=== PATIENT | male | born 1985 | race African-American/Black ===

== ENCOUNTER 2018-06-01 23:24 | Emergency (ER) | payer MEDICARE, MEDICAID ==
--- NOTE | 2018-06-02 00:59 | ER Document Report ---
ED General - General Chief Complaint: Abdominal Pain Stated Complaint: ABDOMINAL PAIN Time Seen by Provider: 06/02/18 00:50 Notes: Patient is a pleasant 32-year-old male who presents with complaint of abdominal pain is been ongoing for 1 week. Abdominal pain is across both sides of the abdomen and periods along the mid abdomen. No fevers. No vomiting. No diarrhea. Last bowel movement was today and was normal. No blood in the stool. He does admit that he drinks alcohol every day. He drinks just under 1/5 of liquor every day. He does smoke cigarettes. He does some marijuana. No other drugs. He does not take any medications. He is never had any surgeries on his abdomen. He denies anything making the pain worse or better. No other complaints at this time. No blood in his stool. TRAVEL OUTSIDE OF THE [place] IN LAST 30 DAYS: No - Related Data Allergies/Adverse Reactions: No Known Allergies Allergy (Verified 07/17/13 12:56) Past Medical History - Social History Smoking Status: Current Every Day Smoker Frequency of alcohol use: Heavy Drug Abuse: Marijuana Family History: Reviewed & Not Pertinent - Immunizations Hx Diphtheria, Pertussis, Tetanus Vaccination: Yes - unk date Review of Systems - Review of Systems Notes: My Normal Review Basic REVIEW OF SYSTEMS: CONSTITUTIONAL : Denies fever, chills, or sweats. Denies recent illness. EENT: Denies eye, ear, throat, or mouth pain or symptoms. Denies nasal or sinus congestion. CARDIOVASCULAR: Denies chest pain. RESPIRATORY: Denies cough, cold, or chest congestion. Denies shortness of breath, difficulty breathing, or wheezing. GASTROINTESTINAL: Abdominal pain. No nausea or vomiting. No diarrhea. GENITOURINARY: Denies difficulty urinating, painful urination, burning, frequency, or blood in urine. MUSCULOSKELETAL: Denies neck or back pain or joint pain or swelling. SKIN: Denies rash or skin lesions. NEUROLOGICAL: Denies altered mental status or loss of consciousness. Denies headache. Denies weakness or paralysis or loss of use of either side. Denies problems with gait or speech. Denies sensory or motor loss. ALL OTHER SYSTEMS REVIEWED AND NEGATIVE. Physical Exam - Vital signs Vitals: Temp Pulse Resp BP Pulse Ox 98.7 F 78 14 167/90 H 99 06/01/18 23:35 06/01/18 23:35 06/01/18 23:35 06/01/18 23:35 06/01/18 23:35 - Notes Notes: General Appearance: Well nourished, alert, cooperative, no acute distress, mild obvious discomfort. Vitals: reviewed, See vital signs table. Eyes: PERRL, EOMI, Conjuctiva clear Mouth: No decreasd moisture Throat: No tonsillar inflammation, No airway obstruction, No lymphadenopathy Neck: Supple, no neck tenderness, No thyromegaly Lungs: No wheezing, No rales, No rhonci, No accessory muscle use, good air exchange bilaterally. Heart: Normal rate, Regular rythm, No murmur, no rub Abdomen: Normal BS, soft, some very mild pain to palpation of the right lower quadrant abdomen. Remainder of abdomen is nontender. No rigidity. No rebounding. No guarding. Extremities: strength 5/5 in all extremities, good pulses in all extremities, no swelling or tenderness in the extremities, no edema. Skin: warm, dry, appropriate color, no rash Neuro: speech clear, oriented x 3, normal affect, responds appropriately to questions. Course - Re-evaluation Re-evalutation: 06/02/18 02:26 Patient's blood work is unremarkable. His x-ray does shows evidence of a large stool burden which is consistent with his current physical exam and presentation. He does not have a lot of abdominal pain on exam. He has just vague pain across the entire middle portion of his abdomen. He has some right lower quadrant pain however I do not suspect appendicitis as his pain is been ongoing a week, he has no fevers, no leukocytosis, and he looks very well. At this time we will place him on MiraLAX. I talked at length about alcohol use and how this can affect his ability to have good bowel movements and also how can cause gastritis and problems with the stomach. I encouraged him to continue to gradually cut back over the course of a week until he is no longer drinking. Patient agrees with this and says he will try. I encouraged him return to ER immediately if he has fevers, vomiting, worsening pain, or if he feels unwell. Patient agrees with plan and will be discharged home. Dictation of this chart was performed using voice recognition software; therefore, there may be some unintended grammatical errors. - Vital Signs Vital signs: Temp Pulse Resp BP Pulse Ox 98.7 F 78 14 167/90 H 99 06/01/18 23:35 06/01/18 23:35 06/01/18 23:35 06/01/18 23:35 06/01/18 23:35 - Laboratory Result Diagrams: 06/02/18 01:00 06/02/18 01:00 Discharge - Discharge Clinical Impression: Abdominal pain Qualifiers: Abdominal location: generalized Qualified Code(s): R10.84 - Generalized abdo heather pain Condition: Good Disposition: HOME, SELF-CARE Additional Instructions: Please gradually cut back on your alcohol intake until you are no longer drinking alcohol. Please try to quit smoking. Continued alcohol and tobacco use will eventually lead to . our xray did show some constipation. This could be causing your pain. please take the prescribed Miralax. Take the Miralax until you are having liquid stools and than stop. Please drink at least 5 glasses of water a day to stay well hydrated. Return to the ER immediately if you develop fevers, worsening pain, blood in your stool, vomiting, or feel that you are worsening in any way. Prescriptions: Famotidine [Pepcid 40 mg Tablet] 40 mg PO DAILY #20 tablet Polyethylene Glycol 3350 [Miralax] 1 cap PO DAILY #527 powder Referrals: VAMSI ESTRADA MD [Primary Care Provider] - Follow up in 3-5 days
[2018-06-02 01:10] LABS: ABSOLUTE BASOPHILS # (AUTO) 0.1 10^3/uL (0.0-0.2); ABSOLUTE EOSINOPHILS # (AUTO) 0.1 10^3/uL (0.0-0.6); ABSOLUTE LYMPHOCYTES (AUTO) 3.3 10^3/uL (0.5-4.7); ABSOLUTE MONOCYTES (AUTO) 0.8 10^3/uL (0.1-1.4); ABSOLUTE NEUT (AUTO) 3.8 10^3/uL (1.7-8.2); EOSINOPHILS % (AUTO) 1.3 % (0-6); HEMATOCRIT 48.1 % (37.9-51.0); HEMOGLOBIN 16.5 g/dL (13.5-17.0); LYMPHOCYTES % (AUTO) 40.8 % (13-45); MEAN CORPUSCULAR HEMOGLOBIN 32.6 pg (27.0-33.4); MEAN CORPUSCULAR HGB CONC 34.3 g/dL (32.0-36.0); MEAN CORPUSCULAR VOLUME 95 fl (80-97); MONOCYTES % (AUTO) 9.9 % (3-13); PLATELET COUNT 270 10^3/uL (150-450); RED BLOOD COUNT 5.05 10^6/uL (4.35-5.55); RED CELL DISTRIBUTION WIDTH 13.2 % (11.5-14.0); TOTAL CELLS COUNTED % (AUTO) 100 %; WHITE BLOOD COUNT 8.2 10^3/uL (4.0-10.5)
[2018-06-02 01:26] LABS: ALANINE AMINOTRANSFERASE 42 U/L (21-72); ALBUMIN 4.4 g/dL (3.5-5.0); ALKALINE PHOSPHATASE 72 U/L (38-126); ANION GAP 7 (5-19); ASPARTATE AMINO TRANSFERASE 26 U/L (17-59); BILIRUBIN,DIRECT 0.2 mg/dL (0.0-0.4); BILIRUBIN,TOTAL 0.7 mg/dL (0.2-1.3); BLOOD UREA NITROGEN 10 mg/dL (7-20); CALCIUM 9.7 mg/dL (8.4-10.2); CARBON DIOXIDE 29 mmol/L (22-30); CHLORIDE 106 mmol/L (98-107); GLUCOSE 92 mg/dL (75-110); LIPASE 50.8 U/L (23-300); SODIUM 142.3 mmol/L (137-145); TOTAL PROTEIN 7.4 g/dL (6.3-8.2)
--- NOTE | 2018-06-02 02:04 | RADIOLOGY REPORT (SQ) ---
EXAM DESCRIPTION: XR ABDOMEN 2 VIEWS SUPINE ERECT COMPLETED DATE/TME: 06/02/2018 00:56 CLINICAL HISTORY: 32 years, Male, abdominal pain COMPARISON: 05/05/2011 abdominal series NUMBER OF VIEWS: 3 TECHNIQUE: Supine and erect views of the abdomen LIMITATIONS: None. FINDINGS: Nonspecific, nonobstructive bowel gas pattern. Abundant stool in the colon. No free air IMPRESSION: Abundant stool in the colon copyright 2010 [employer]- All Rights Reserved
[2018-06-02 02:49] VITALS: BP 154/88
== END 2018-06-02 02:49 | disposition home or self-care (01) ==
LOC: ER 23:24
DX: R10.84 Generalized abdominal pain (principal); F17.210 Nicotine dependence, cigarettes, uncomplicated
CPT/HCPCS: 36415; 74019; 80053; 83690; 85025; 99284

== ENCOUNTER 2018-12-25 17:02 | Emergency (ER) | payer MEDICARE, MEDICAID ==
--- NOTE | 2018-12-25 17:46 | ER Document Report ---
ED Medical Screen (RME) - General Chief Complaint: Rib Pain Stated Complaint: RIB PAIN Time Seen by Provider: 12/25/18 17:35 Primary Care Provider: VAMSI ESTRADA MD [Primary Care Provider] - Follow up as needed Mode of Arrival: Ambulatory Information source: Patient Notes: Patient presents with right-sided pain is Sunday. Patient tender to palpate in the right rib area right upper quad right flank pain. Denies trauma. Patient shovels asphalt for living. Reports he is eating drink without problems. Reports he does feel little short of breath. No complaints of fever vomiting or diarrhea. Respiratory rate even unlabored. She has a very large abdomen is tender to palpate right rib and right upper quad right flank. I have greeted and performed a rapid initial assessment of this patient. A comprehensive ED assessment and evaluation of the patient, analysis of test results and completion of the medical decision making process will be conducted by additional ED providers. Dictation of this chart was performed using voice recognition software; therefore, there may be some unintended grammatical errors. TRAVEL OUTSIDE OF THE [place] IN LAST 30 DAYS: No - Related Data Allergies/Adverse Reactions: No Known Allergies Allergy (Verified 12/25/18 17:37) Past Medical History Renal/ Medical History: Denies: Hx Peritoneal Dialysis - Immunizations Hx Diphtheria, Pertussis, Tetanus Vaccination: Yes - unk date Physical Exam - Vital signs Vitals: Temp Pulse Resp BP Pulse Ox 98.6 F 94 18 134/70 H 100 12/25/18 17:24 12/25/18 17:24 12/25/18 17:24 12/25/18 17:24 12/25/18 17:24 Course - Vital Signs Vital signs: Temp Pulse Resp BP Pulse Ox 98.6 F 94 18 134/70 H 100 12/25/18 17:24 12/25/18 17:24 12/25/18 17:24 12/25/18 17:24 12/25/18 17:24 Doctor's Discharge - Discharge Referrals: VAMSI ESTRADA MD [Primary Care Provider] - Follow up as needed
--- NOTE | 2018-12-25 18:20 | RADIOLOGY REPORT (SQ) ---
EXAM DESCRIPTION: RIBS RIGHT W/PA CHEST COMPLETED DATE/TIME: 12/25/2018 5:57 pm REASON FOR STUDY: rib pain COMPARISON: None. TECHNIQUE: Frontal view of the chest and additional views of the right ribs acquired. NUMBER OF VIEWS: Three view. LIMITATIONS: None. FINDINGS: FRONTAL CXR: No pneumothorax. No pleural effusion. No atelectasis or infiltrates. RIBS: No displaced rib fractures. No lytic or blastic bony lesions. OTHER: No other significant finding. IMPRESSION: NO PNEUMOTHORAX. NO DISPLACED RIB FRACTURES. COMMENT: SITE OF TRAUMA/COMPLAINT MARKED/STAMP COMPLETED: NO. TECHNICAL DOCUMENTATION: JOB ID: [id number] [employer]- All Rights Reserved Reading location - IP/workstation name: [email or web address]
[2018-12-25 18:42] LABS: ABSOLUTE BASOPHILS # (AUTO) 0.1 10^3/uL (0.0-0.2); ABSOLUTE EOSINOPHILS # (AUTO) 0.1 10^3/uL (0.0-0.6); ABSOLUTE LYMPHOCYTES (AUTO) 2.7 10^3/uL (0.5-4.7); ABSOLUTE MONOCYTES (AUTO) 0.7 10^3/uL (0.1-1.4); ABSOLUTE NEUT (AUTO) 4.5 10^3/uL (1.7-8.2); EOSINOPHILS % (AUTO) 1.1 % (0-6); HEMATOCRIT 40.8 % (37.9-51.0); HEMOGLOBIN 13.6 g/dL (13.5-17.0); LYMPHOCYTES % (AUTO) 33.2 % (13-45); MEAN CORPUSCULAR HEMOGLOBIN 31.9 pg (27.0-33.4); MEAN CORPUSCULAR HGB CONC 33.2 g/dL (32.0-36.0); MEAN CORPUSCULAR VOLUME 96 fl (80-97); MONOCYTES % (AUTO) 8.5 % (3-13); PLATELET COUNT 243 10^3/uL (150-450); RED BLOOD COUNT 4.25 10^6/uL (4.35-5.55); RED CELL DISTRIBUTION WIDTH 13.1 % (11.5-14.0); SEGMENTED NEUTROPHILS % (AUTO) 56.2 % (42-78); TOTAL CELLS COUNTED % (AUTO) 100 %
[2018-12-25 18:56] LABS: APPEARANCE,URINE CLEAR; BILIRUBIN,URINE NEGATIVE (NEGATIVE); CALCIUM OXALATE CRYSTALS,URINE RARE /HPF; COLOR,URINE YELLOW; GLUCOSE, URINE NEGATIVE (NEGATIVE); KETONES,URINE NEGATIVE (NEGATIVE); LEUKOCYTE ESTERASE,URINE NEGATIVE (NEGATIVE); NITRITE,URINE NEGATIVE (NEGATIVE); PROTEIN,URINE NEGATIVE (NEGATIVE); URINE SPECIFIC GRAVITY 1.029; UROBILINOGEN,URINE NEGATIVE mg/dL (<2.0)
--- NOTE | 2018-12-25 18:58 | RADIOLOGY REPORT (SQ) ---
EXAM DESCRIPTION: U/S ABDOMEN LIMITED W/O DOP COMPLETED DATE/TIME: 12/25/2018 6:27 pm REASON FOR STUDY: ruq flank pain, rib pain COMPARISON: None. TECHNIQUE: Dynamic and static grayscale images acquired of the abdomen and recorded on PACS. Catalinao tyree selected color Doppler and spectral images recorded. LIMITATIONS: None. FINDINGS: PANCREAS: No masses. The pancreatic tail was not well seen. LIVER: Increased echogenicity. No masses. LIVER VASCULATURE: Normal directional flow of the main portal vein and hepatic veins. GALLBLADDER: No stones. There is some sludge. There is no wall thickening or pericholecystic fluid. ULTRASOUND-DETECTED BRONSON'S SIGN: Negative. INTRAHEPATIC DUCTS AND COMMON DUCT: CBD and intrahepatic ducts normal caliber. No filling defects. INFERIOR VENA CAVA: Not imaged. AORTA: No aneurysm. RIGHT KIDNEY: Normal size, 13.4 cm. Normal echogenicity. No solid or suspicious masses. No hydroneph rosis. No calcifications. PERITONEAL AND RIGHT PLEURAL SPACE: No ascites or effusions. OTHER: No other significant findings. IMPRESSION: Hepatic steatosis. There is some sludge in the gallbladder. There is no evidence of ch olecystitis. TECHNICAL DOCUMENTATION: JOB ID: [id number] [employer]- All Rights Reserved Reading location - IP/workstation name: [email or web address]
[2018-12-25 19:04] LABS: ALBUMIN 3.7 g/dL (3.5-5.0); ALKALINE PHOSPHATASE 65 U/L (38-126); ANION GAP 6 (5-19); ASPARTATE AMINO TRANSFERASE 24 U/L (17-59); BILIRUBIN,DIRECT 0.3 mg/dL (0.0-0.4); BILIRUBIN,TOTAL 0.4 mg/dL (0.2-1.3); BLOOD UREA NITROGEN 8 mg/dL (7-20); CALCIUM 9.2 mg/dL (8.4-10.2); CARBON DIOXIDE 31 mmol/L (22-30); CHLORIDE 104 mmol/L (98-107); GLUCOSE 106 mg/dL (75-110); POTASSIUM 4.1 mmol/L (3.6-5.0); TOTAL PROTEIN 6.6 g/dL (6.3-8.2)
[2018-12-25] MEDS ORDERED: ACETAMINOPHEN 325 MG TABLET PO ONE (19:31)
[2018-12-25] MEDS ORDERED: IBUPROFEN 600 MG TABLET PO ONE (19:31)
[2018-12-25] MEDS ORDERED: LIDOCAINE 5% (700 MG) TRANSDERMAL ADH..PATCH TP ONE (19:31)
--- NOTE | 2018-12-25 19:37 | ER Document Report ---
ED General - General Chief Complaint: Rib Pain Stated Complaint: RIB PAIN Time Seen by Provider: 12/25/18 17:35 Primary Care Provider: VAMSI ESTRADA MD [ACTIVE STAFF] - Follow up as needed Mode of Arrival: Ambulatory Notes: Generally healthy 33-year-old male with no past medical history presents to the emergency department with chief complaint of right upper quadrant/right rib pain since Sunday. Patient shovels asphalt for a living. Patient is unclear if he heard at work. Patient denies any nausea or vomiting, denies worsening pain after eating, appetite is normal and he has no problems eating and drinking. Patient states that he does feel slightly short of breath but this is secondary to pain. No central chest pain, no constipation, no urinary symptoms. patient denies history of kidney stones. No other complaints TRAVEL OUTSIDE OF THE [place] IN LAST 30 DAYS: No - Related Data Allergies/Adverse Reactions: No Known Allergies Allergy (Verified 12/25/18 17:37) Past Medical History - General Information source: Patient - Social History Smoking Status: Current Every Day Smoker Chew tobacco use (# tins/day): No Frequency of alcohol use: Occasional Drug Abuse: Marijuana Family History: Reviewed & Not Pertinent Patient has suicidal ideation: No Patient has homicidal ideation: No Renal/ Medical History: Denies: Hx Peritoneal Dialysis Past Surgical History: Reports: Hx Oral Surgery - Immunizations Hx Diphtheria, Pertussis, Tetanus Vaccination: Yes - unk date Review of Systems - Review of Systems Constitutional: See HPI EENT: No symptoms reported Cardiovascular: See HPI Respiratory: See HPI Gastrointestinal: See HPI Genitourinary: See HPI Male Genitourinary: No symptoms reported Musculoskeletal: See HPI Skin: No symptoms reported Hematologic/Lymphatic: No symptoms reported Neurological/Psychological: No symptoms reported Physical Exam - Vital signs Vitals: Temp Pulse Resp BP Pulse Ox 98.6 F 94 18 134/70 H 100 12/25/18 17:24 12/25/18 17:24 12/25/18 17:24 12/25/18 17:24 12/25/18 17:24 - Notes Notes: PHYSICAL EXAMINATION: Reviewed vital signs and charting by RN GENERAL: Alert, interacts well. No acute distress. HEAD: Normocephalic, atraumatic. EYES: Pupils equal and round. Extraocular movements intact. ENT: Oral mucosa moist, tongue midline. NECK: Full range of motion. Trachea midline. LUNGS: Clear to auscultation bilaterally, no wheezes, rales, or rhonchi. No respiratory distress. CHEST: Reproducible tenderness to palpation over the anterior right lower ribs HEART: Regular rate and rhythm. No murmur ABDOMEN: soft, tenderness to palpation right upper quadrant unclear if this is referred from his ribs but no clear Sanchez sign or deep tenderness. No distention. Bowel sounds present EXTREMITIES: Moves all 4 extremities spontaneously. No edema, No cyanosis. PSYCH: Normal affect, normal mood. SKIN: Warm, dry, normal turgor. No rashes or lesions noted. Course - Re-evaluation Re-evalutation: 12/25/18 19:45 Well-appearing and nontoxic. Ultrasound showed gallbladder sludge and hepatic steatosis. Patient states that he used to drink heavily but has slowed down tremendously in the last several years. I could not elicit a Sanchez sign and his pain does seem to be focused superficially when palpating the ribs consistent with costochondritis. I have given him a referral to urology as well because he has asymptomatic microscopic hematuria. Plan is to place a Lidoderm patch give him Motrin and Tylenol provide him with a couple of days of rest from work, and have him follow-up with Dr. Estrada. Patient is in agreement with the plan and is stable for discharge. - Vital Signs Vital signs: Temp Pulse Resp BP Pulse Ox 98.6 F 94 18 134/70 H 100 12/25/18 17:24 12/25/18 17:24 12/25/18 17:24 12/25/18 17:24 12/25/18 17:24 - Laboratory Result Diagrams: 12/25/18 18:25 12/25/18 18:25 Laboratory results interpreted by me: 12/25/18 12/25/18 12/25/18 18:25 18:25 18:25 RBC 4.25 L Carbon Dioxide 31 H Urine Blood MODERATE H Urine Ascorbic Acid 40 H Discharge - Discharge Clinical Impression: Rib pain on right side, Sludge in gallbladder, Steatosis of liver, Microscopic hematuria Condition: Good Disposition: HOME, SELF-CARE Additional Instructions: You were seen in the emergency department this evening for a couple of different things. The right rib pain you are having I suspect is that, your ribs. Even though you have sludge in your gallbladder and signs of fatty liver the pain was focused on top of your ribs which leads me to believe that it some musculoskeletal injury from work for just twisting the wrong way. This is a condition called costochondritis and, like we discussed, is when your ribs dislocate and relocate causing inflammation of the surrounding tissue. It is extremely painful. Please take Motrin 600 mg every 6 hours with food or milk for the next 5 to 7 days, you can purchase Aspercreme topical and place it over the area per the directions on the tube, he can apply heat and/or ice. If your symptoms do not start to improve in the next 5 to 7 days I recommend you follow- up with Dr. Estrada. I also want you to follow-up regarding the blood that was seen in your urine. This is a condition called microscopic hematuria. I have given you information for [facility] and you can contact them, but it might be easier to go to Dr. Estrada. You can call the urologist office for further guidance or call Dr. Haque. If you develop a gross blood in your urine, have pain with urination with blood, you are having worsening right upper quadrant pain, intractable nausea or vomiting, acute shortness of breath or severe chest pain, or you have any other concerning symptoms please immediately return to the emergency department for reevaluation. Forms: Return to Work Referrals: VAMSI ESTRADA MD [ACTIVE STAFF] - Follow up as needed [facility] [Provider Group] - Follow up as needed
[2018-12-25 19:56] VITALS: BP 136/84
--- NOTE | 2018-12-26 08:02 | EKG REPORT ---
SEVERITY:- NORMAL ECG - SINUS RHYTHM : Confirmed by: Armando Phoenix MD 26-Dec-2018 08:00:49
== END 2018-12-25 19:55 | disposition home or self-care (01) ==
LOC: ER 17:02
DX: R07.81 Pleurodynia (principal); K82.8 Other specified diseases of gallbladder; K76.0 Fatty (change of) liver, not elsewhere classified; R31.29 Other microscopic hematuria; R10.11 Right upper quadrant pain; F17.200 Nicotine dependence, unspecified, uncomplicated
CPT/HCPCS: 93005; 99284; 36415; 85025; 80053; 81001; 71101; 76705; 93010; A9270 ×2

== ENCOUNTER 2019-01-05 20:34 | Emergency (ER) | payer MEDICARE, MEDICAID ==
--- NOTE | 2019-01-05 21:44 | RADIOLOGY REPORT (SQ) ---
XR CHEST 2 VIEWS EXAM DATE: 01/05/2019 12:00 AM CDT HISTORY: rib pain, sob. COMPARISON: None. FINDINGS: The heart size is within normal limits. No consolidation, pleural effusion, or pneumothorax is seen. The bony thorax is intact. IMPRESSION: No evidence of acute cardiopulmonary disease.
[2019-01-05] MEDS ORDERED: OXYCODONE-ACETAMINOPHEN 5-325 MG TABLET PO ONE (22:12)
[2019-01-05] MEDS ORDERED: KETOROLAC TROMETHAMINE 60 MG/2 ML SDV IM ONE (22:12)
--- NOTE | 2019-01-05 22:20 | ER Document Report ---
ED General - General Chief Complaint: Rib Pain Stated Complaint: DIFFICULTY BREATHING Time Seen by Provider: 01/05/19 21:34 Primary Care Provider: VAMSI ESTRADA MD [Primary Care Provider] - Follow up as needed Notes: 33-year-old male presents with ongoing right rib pain worse with movement palpation and deep breathing. Is been going on for about a week. 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 He denies belly pain nausea vomiting weight loss or fever. He has some cough but smokes both cigarettes and marijuana. He says he is short of breath mostly from the pain. He did not notice a rash. He did not fall or have any other injuries. TRAVEL OUTSIDE OF THE [place] IN LAST 30 DAYS: No - Related Data Allergies/Adverse Reactions: No Known Allergies Allergy (Verified 12/25/18 17:37) Past Medical History - Social History Smoking Status: Current Every Day Smoker Family History: Reviewed & Not Pertinent Renal/ Medical History: Denies: Hx Peritoneal Dialysis Past Surgical History: Reports: Hx Oral Surgery - Immunizations Hx Diphtheria, Pertussis, Tetanus Vaccination: Yes - unk date Review of Systems - Review of Systems Notes: REVIEW OF SYSTEMS GEN: Denies fever, chills, weight loss ENT: Denies sore throat, nasal discharge, ear pain EYES: Denies blurry vision, eye pain, discharge CV: Pain RESP: Denies cough, shortness of breath, wheezing GI: Denies abdominal pain, nausea, vomiting, diarrhea MSK: Denies joint pain/swelling, edema, SKIN: Denies rash, skin lesions LYMPH: Denies swollen glands/lymph nodes NEURO: Denies headache, focal weakness or numbness, dizziness PSYCH: Denies depression, suicidal or homicidal ideation PHYSICAL EXAMINATION General: No acute distress, well-nourished Head: Atraumatic, normocephalic ENT: Mouth normal, oropharynx moist, no exudates or tonsillar enlargement Eyes: Conjunctiva normal, pupils equal, lids normal Neck: No JVD, supple, no guarding CVS: Normal rate, regular rhythm, no murmurs Resp: No resp distress, equal and normal breath sounds bilaterally GI: Nondistended, soft, kat right-sided rib tenderness to palpation without crepitus or deformity, no rebound or guarding Ext: No deformities, no edema, normal range of motion in upper and lower ext Back: No CVA or midline TTP Skin: No rash, warm Lymphatic: No lymphadeopathy noted Neuro: Awake, alert. Face symmetric. GCS 15. Physical Exam - Vital signs Vitals: Temp Pulse Resp BP Pulse Ox 99.2 F 99 36 H 134/85 H 99 01/05/19 20:45 01/05/19 20:45 01/05/19 20:45 01/05/19 20:45 01/05/19 20:45 Course - Re-evaluation Re-evalutation: 01/05/19 22:20 Repeat visit for ongoing chest wall pain on the right which is both reproducible and worse with position. Lungs clear saturation normal chest x-ray clear. No evidence of hepatic pain tenderness or other interabdominal process. No rash to suggest shingles. EKG does not show ischemic change. This is likely chest wall pain and needs to be treated more appropriately. Will give Toradol and Percocet in the ED and discharged with NSAID and pain control. Doubt pulmonary embolus. 01/06/19 00:08 ecg cxr labs neg better post meds likely chest wall injstrain naproixen, f/u pmd - Vital Signs Vital signs: Temp Pulse Resp BP Pulse Ox 99.2 F 99 36 H 134/85 H 99 01/05/19 20:45 01/05/19 20:45 01/05/19 20:45 01/05/19 20:45 01/05/19 20:45 - Laboratory Result Diagrams: 01/05/19 23:15 - Diagnostic Test Radiology reviewed: Pending, Image reviewed, Reports reviewed - EKG Interpretation by Me EKG shows normal: Sinus rhythm Rate: Normal Rhythm: NSR - No ST or T wave changes suggestive of ischemia or pulmonary embolism Discharge - Discharge Clinical Impression: Chest wall pain Condition: Good Disposition: HOME, SELF-CARE Instructions: Anti-Inflammatory Medication ([facility]), Chest Wall Pain ([facility]) Additional Instructions: HEENT seems to be from either inflammation of your rib/cartilage, or an injury to your chest wall. He did not have a heart attack based on her testing today, pneumonia or collapsed lung. Please take the anti-inflammatory meds, use ice, avoid strenuous activities and follow-up with your regular doctor in 1 week. Prescriptions: Naproxen Sodium [Flanax] 220 mg PO BIDP PRN #60 tablet PRN Reason: Referrals: VAMSI ESTRADA MD [Primary Care Provider] - Follow up as needed
[2019-01-05 23:45] LABS: ANION GAP 8 (5-19); BLOOD UREA NITROGEN 9 mg/dL (7-20); CALCIUM 9.3 mg/dL (8.4-10.2); CARBON DIOXIDE 30 mmol/L (22-30); CHLORIDE 101 mmol/L (98-107); GLUCOSE 90 mg/dL (75-110)
--- NOTE | 2019-01-06 00:32 | EKG REPORT ---
SEVERITY:- NORMAL ECG - SINUS RHYTHM : Confirmed by: Dahlia Lawrence 06-Jan-2019 00:32:17
[2019-01-06 00:45] VITALS: BP 133/86
== END 2019-01-06 00:45 | disposition home or self-care (01) ==
LOC: ER 20:34
DX: R07.89 Other chest pain (principal); R07.81 Pleurodynia; R05 Cough; F17.210 Nicotine dependence, cigarettes, uncomplicated; F12.90 Cannabis use, unspecified, uncomplicated
CPT/HCPCS: 93005; 99284; 96374; 36415; 80048; 84484; 71046; 93010; J1885; A9270

== ENCOUNTER 2019-07-25 03:53 | Emergency (ER) | payer MEDICARE, MEDICAID ==
[2019-07-25 04:03] VITALS: BP 147/107
--- NOTE | 2019-07-25 05:00 | RADIOLOGY REPORT (SQ) ---
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 HISTORY: 33-year-old patient with history of right hand pain, trauma. COMPARISON: None available FINDINGS: There is an acute fracture through the right fifth metacarpal neck which is minimally angulated. There is diffuse overlying soft tissue swelling. No gross intra-articular extension is seen. IMPRESSION: There is an acute, minimally angulated fracture through the right fifth metacarpal neck.
[2019-07-25] MEDS ORDERED: OXYCODONE-ACETAMINOPHEN 5-325 MG TABLET PO ONE (05:04)
[2019-07-25] MEDS ORDERED: HYDROCODONE/ACETAMINOPHEN 5-325 MG (6 TAB/ER DISP) PO PRN (05:04)
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
== END 2019-07-25 06:00 | disposition home or self-care (01) ==
LOC: ER 03:53
DX: S62.336A Displaced fracture of neck of fifth metacarpal bone, right hand, initial encounter for closed fracture (principal); Y04.2XXA Assault by strike against or bumped into by another person, initial encounter; F17.210 Nicotine dependence, cigarettes, uncomplicated
CPT/HCPCS: 99283; 73130; 29125; A9270 ×2

== ENCOUNTER 2020-04-16 10:09 | Emergency (ER) | payer MEDICARE, MEDICAID ==
--- NOTE | 2020-04-16 10:44 | ER Document Report ---
ED Medical Screen (RME) - General Chief Complaint: Abdominal Pain Stated Complaint: ABDOMINAL PAIN Time Seen by Provider: 04/16/20 10:42 Primary Care Provider: VAMSI ESTRADA MD [Primary Care Provider] - Follow up as needed Mode of Arrival: Ambulatory Information source: Patient Notes: 34-year-old resents to ED for abdominal pain nausea for about 2 weeks. He s tates he cannot have a normal bowel movement. He states he takes laxatives takes laxatives and does not have a normal bowel movement. He states is been going on for least 2 weeks. He states he did have a small liquid bowel movement this morning after taking laxatives last night. He states he does not smoke or drink he does use marijuana daily. He is alert oriented respirations regular nonlabored speaking in full sentences. We will get blood urine and chest x-ray. I I have greeted and performed a rapid initial assessment of this patient. A comprehensive ED assessment and evaluation of the patient, analysis of test results and completion of medical decision making process will be conducted by an additional ED providers. TRAVEL OUTSIDE OF THE [place] IN LAST 30 DAYS: No - Related Data Allergies/Adverse Reactions: No Known Allergies Allergy (Verified 04/16/20 10:40) Past Medical History Renal/ Medical History: Denies: Hx Peritoneal Dialysis Past Surgical History: Reports: Hx Oral Surgery - Immunizations Hx Diphtheria, Pertussis, Tetanus Vaccination: Yes - unk date Physical Exam - Vital signs Vitals: Temp Pulse Resp BP Pulse Ox 98.1 F 79 16 157/85 H 100 04/16/20 10:19 04/16/20 10:19 04/16/20 10:19 04/16/20 10:19 04/16/20 10:19 Course - Vital Signs Vital signs: Temp Pulse Resp BP Pulse Ox 98.1 F 79 16 157/85 H 100 04/16/20 10:19 04/16/20 10:19 04/16/20 10:19 04/16/20 10:19 04/16/20 10:19 Doctor's Discharge - Discharge Referrals: VAMSI ESTRADA MD [Primary Care Provider] - Follow up as needed
[2020-04-16 11:07] LABS: ABSOLUTE MONOCYTES (AUTO) 0.6 10^3/uL (0.1-1.4); EOSINOPHILS % (AUTO) 0.2 % (0-6); LYMPHOCYTES % (AUTO) 36.7 % (13-45); MONOCYTES % (AUTO) 7.6 % (3-13); TOTAL CELLS COUNTED % (AUTO) 100 %
[2020-04-16 11:13] LABS: APPEARANCE,URINE SLIGHTLY-CLOUDY; BILIRUBIN,URINE NEGATIVE (NEGATIVE); COLOR,URINE AMBER; GLUCOSE, URINE NEGATIVE (NEGATIVE); KETONES,URINE 20 mg/dL (NEGATIVE); LEUKOCYTE ESTERASE,URINE NEGATIVE (NEGATIVE); NITRITE,URINE NEGATIVE (NEGATIVE); PROTEIN,URINE 30 mg/dL (NEGATIVE); URINE SPECIFIC GRAVITY 1.031; UROBILINOGEN,URINE NEGATIVE mg/dL (<2.0)
[2020-04-16 11:15] LABS: ABSOLUTE LYMPHOCYTES (AUTO) 2.8 10^3/uL (0.5-4.7); ABSOLUTE NEUT (AUTO) 4.1 10^3/uL (1.7-8.2); BASOPHILS % (AUTO) 0.6 % (0-2); HEMOGLOBIN 14.3 g/dL (13.5-17.0); MEAN CORPUSCULAR HEMOGLOBIN 32.3 pg (27.0-33.4); MEAN CORPUSCULAR HGB CONC 34.1 g/dL (32.0-36.0); MEAN CORPUSCULAR VOLUME 95 fl (80-97); PLATELET COUNT 253 10^3/uL (150-450); RED BLOOD COUNT 4.43 10^6/uL (4.35-5.55); RED CELL DISTRIBUTION WIDTH 12.8 % (11.5-14.0); SEGMENTED NEUTROPHILS % (AUTO) 54.9 % (42-78); WHITE BLOOD COUNT 7.5 10^3/uL (4.0-10.5)
--- NOTE | 2020-04-16 11:18 | RADIOLOGY REPORT (SQ) ---
EXAM DESCRIPTION: ACUTE ABDOMEN SERIES IMAGES COMPLETED DATE/TIME: 04/16/2020 10:59 am REASON FOR STUDY: States chronic constipation abdominal pain COMPARISON: None. NUMBER OF VIEWS: Three views. TECHNIQUE: Frontal chest, supine abdomen and upright/decubitus abdomen radiographic images acquired. LIMITATIONS: None. FINDINGS: CHEST: Lungs clear of infiltrates. FREE AIR: None. No abnormal gas collections. BOWEL GAS PATTERN: Nonobstructive pattern. No dilated loops or air fluid levels. CALCIFICATIONS: No suspicious calcifications. HARDWARE: None in the abdomen. SOFT TISSUES: No gross mass or suggestion of organomegaly. BONES: No acute fracture. No worrisome bone lesions. OTHER: No other significant finding. IMPRESSION: NO RADIOGRAPHIC EVIDENCE FOR ACUTE ABDOMINAL DISEASE. TECHNICAL DOCUMENTATION: JOB ID: [id number] 2010 [employer]- All Rights Reserved Reading location - IP/workstation name: [email or web address]
[2020-04-16 11:22] LABS: ALBUMIN 4.6 g/dL (3.5-5.0); ALKALINE PHOSPHATASE 61 U/L (38-126); ANION GAP 7 (5-19); ASPARTATE AMINO TRANSFERASE 22 U/L (17-59); BLOOD UREA NITROGEN 9 mg/dL (7-20); CALCIUM 9.7 mg/dL (8.4-10.2); CARBON DIOXIDE 30 mmol/L (22-30); CHLORIDE 102 mmol/L (98-107); GLUCOSE 92 mg/dL (75-110); POTASSIUM 4.2 mmol/L (3.6-5.0); TOTAL PROTEIN 7.9 g/dL (6.3-8.2)
[2020-04-16] MEDS ORDERED: METOCLOPRAMIDE HCL ORAL SOLN 10 MG/10 ML UDCUP PO ONE (13:40)
[2020-04-16] MEDS ORDERED: MAG HYDROX/AL HYDROX/SIMETH SUSP 30 ML UDCUP PO ONE (13:40)
[2020-04-16] MEDS ORDERED: LIDOCAINE 2% VISCOUS SOLN 15 ML UDCUP PO ONE (13:40)
--- NOTE | 2020-04-16 14:08 | ER Document Report ---
ED GI/ - General Chief Complaint: Abdominal Pain Stated Complaint: ABDOMINAL PAIN Time Seen by Provider: 04/16/20 10:42 Primary Care Provider: VAMSI ESTRADA MD [Primary Care Provider] - Follow up in 3-5 days Mode of Arrival: Ambulatory TRAVEL OUTSIDE OF THE [place] IN LAST 30 DAYS: No - HPI Notes: 04/16/20 14:20 Patient is a 34-year-old male with no significant past medical history who presents with abdominal pain. It is epigastric and periumbilical. Feels burning and cramping. He has no right lower quadrant abdominal pain. He states it has been off and on for 6 months. He has never seen anyone for this. He tried laxatives because he thought he was constipated. He now has liquid stool. It is nonbloody. He states he vomited today because he felt burning in his epigastric area. No chest pain or shortness of breath. No fevers or chills. No urinary symptoms. - Related Data Allergies/Adverse Reactions: No Known Allergies Allergy (Verified 04/16/20 10:45) Past Medical History - General Information source: Patient, Relative - Social History Smoking Status: Never Smoker Chew tobacco use (# tins/day): No Frequency of alcohol use: None Drug Abuse: Marijuana Family History: Reviewed & Not Pertinent Patient has homicidal ideation: No Renal/ Medical History: Denies: Hx Peritoneal Dialysis Past Surgical History: Reports: Hx Oral Surgery - Immunizations Hx Diphtheria, Pertussis, Tetanus Vaccination: Yes - unk date Review of Systems - Review of Systems Notes: CONSTITUTIONAL: No fever, fatigue or weight loss. SKIN: No rash. HENT: No congestion, ear pain, or sore throat. CARDIOVASCULAR: No chest pain or edema. RESPIRATORY: No cough, shortness of breath, congestion, or wheezing. GASTROINTESTINAL: Positive for abdominal pain, loose stools, vomiting. GENITOURINARY: No dysuria. No hematuria. MUSCULOSKELETAL: No joint pain or swelling. NEUROLOGIC: No seizures. No headache, focal weakness or sensory changes. HEMATOLOGIC: No unusual bruising or bleeding. PSYCHIATRIC: No depression or anxiety. Physical Exam - Vital signs Vitals: Temp Pulse Resp BP Pulse Ox 98.1 F 79 16 157/85 H 100 04/16/20 10:19 04/16/20 10:19 04/16/20 10:19 04/16/20 10:19 04/16/20 10:19 - General General appearance: Appears well Notes: VITAL SIGNS: Within normal limits. GENERAL: No acute distress, non-toxic appearance. HEAD: Normal with no signs of head trauma. EYES: EOMI, conjunctiva normal, no discharge. EARS: Hearing grossly intact. NECK: Normal range of motion, no tenderness, supple, no lymphadenopathy, No adenopathy, no JVD. CHEST: Clear breath sounds bilaterally. No wheezes, rales, or rhonchi. CARDIAC: Regular rate and rhythm. S1 and S2, without murmurs, gallops, or rubs. VASCULAR: No Edema. ABDOMEN: Normal and soft with no tenderness, no masses or pulsatile masses. Mild discomfort to epigastric palpation. GASTROINTESTINAL: Bowel sounds normal MUSCULOSKELETAL: Good range of motion of all major joints. Extremities without clubbing, cyanosis or edema. NEUROLOGICAL: Alert and oriented x 3. No focal sensory or strength deficits. Speech normal. Follows commands appropriately. PSYCHIATRIC: Normal Affect, judgement and mood. SKIN: Normal appearance with no rashes or lesions. Course - Re-evaluation Re-evalutation: 04/16/20 14:25 Patient's lab work is unremarkable. His x-ray does not show any increased stool. He has no right lower quadrant tenderness. His exam is benign. Was given a GI cocktail. Patient states he feels completely better. His pain has resolved. He states that he thinks he vomited today from acid reflux as he does have a history of this has not been taking any medication for it. The patient was told to stop taking the laxatives and make sure he is staying hydrated and drinking plenty of fluid and eating fiber. Patient was told to avoid spicy foods. He will follow up with his PCP. Patient was given strict return precautions. He was given Pepcid. Him and his friend are very agreeable to the plan. I answered all their questions. - Vital Signs Vital signs: Temp Pulse Resp BP Pulse Ox 97.9 F 88 16 160/98 H 98 04/16/20 14:13 04/16/20 14:13 04/16/20 14:13 04/16/20 14:13 04/16/20 14:13 - Laboratory Result Diagrams: 04/16/20 10:50 04/16/20 10:50 Laboratory results interpreted by me: 04/16/20 10:50 Urine Protein 30 H Urine Ketones 20 H Urine Blood MODERATE H - Diagnostic Test Radiology reviewed: Image reviewed, Reports reviewed Discharge - Discharge Clinical Impression: Epigastric pain Condition: Stable Disposition: HOME, SELF-CARE Instructions: Abdominal Pain ([facility]) Additional Instructions: Your work-up today is reassuring. Follow-up with your family doctor. Please make sure you are drinking plenty of fluids. He will be prescribed medication for reflux. Return to the ER for any fevers, return of abdominal pain, any other concerning symptoms. Prescriptions: Famotidine [Pepcid 20 mg Tablet] 20 mg PO DAILY #12 tablet Referrals: VAMSI ESTRADA MD [Primary Care Provider] - Follow up in 3-5 days
[2020-04-16 14:14] VITALS: BP 160/98
== END 2020-04-16 14:14 | disposition home or self-care (01) ==
LOC: ER 10:09
DX: K21.9 Gastro-esophageal reflux disease without esophagitis (principal); R10.13 Epigastric pain; R10.33 Periumbilical pain; R11.10 Vomiting, unspecified; F12.10 Cannabis abuse, uncomplicated; R19.4 Change in bowel habit
CPT/HCPCS: 99284; 36415; 87086; 83690; 85025; 80053; 81001; 74022; J3490; A9270 ×2